=== PATIENT | female | born 1935 | race Hispanic/Latino ===

== ENCOUNTER 2018-04-16 02:30 | Emergency (ER) | payer MEDICARE ==
[2018-04-16] MEDS ORDERED: SODIUM CHLORIDE 0.9% 1000ML 1,000 ML IV ONE ×2 (02:55→04:47)
[2018-04-16] MEDS ORDERED: ONDANSETRON HCL 4 MG/2 ML VIAL ONE (02:55)
[2018-04-16 03:08] LABS: BASOPHILS % (AUTO) 0.2 % (0.0-5.0); EOSINOPHILS % (AUTO) 0.1 % (0.0-8.0); HEMATOCRIT 41.9 % (36-48); LYMPHOCYTES % (AUTO) 2.1 % (21.0-51.0); MEAN CORPUSCULAR HEMOGLOBIN 29.8 pg (27.0-33.0); MEAN CORPUSCULAR HGB CONC 33.7 g/dL (32.0-36.0); MEAN CORPUSCULAR VOLUME 88.4 fL (79-99); MONOCYTES % (AUTO) 2.3 % (3.0-13.0); NEUTROPHILS % (AUTO) 95.3 % (40.0-77.0); PLATELET COUNT (AUTO) 217 K/uL (130-400); RED BLOOD CELL COUNT(AUTO) 4.74 MIL/uL (4.00-5.50); RED CELL DISTRIBUTION WIDTH 15.2 % (11.0-15.5); WHITE BLOOD COUNT (AUTO) 15.2 K/uL (4.8-10.8)
[2018-04-16 03:09] LABS: CREATININE 0.9 mg/dL (0.5-1.5); POTASSIUM 4.5 mmol/L (3.5-5.1)
[2018-04-16 03:14] LABS: TOTAL PROTEIN, SERUM 7.7 g/dL (6.0-8.3)
[2018-04-16 03:15] LABS: BILIRUBIN,URINE SMALL (NEGATIVE); COLOR,URINE YELLOW (YELLOW); GLUCOSE, URINE (UA) NEGATIVE (NEGATIVE); KETONES,URINE 40 mg/dL (NEGATIVE); LEUKOCYTE ESTERASE ,URINE NEGATIVE (NEGATIVE); NITRATE,URINE NEGATIVE (NEGATIVE); OCCULT BLOOD,URINE SMALL (NEGATIVE); PH,URINE 5.5 (5.0-8.0); PROTEIN,URINE TRACE (NEGATIVE); UROBILINOGEN,URINE 0.2 mg/dL (0.2-1.0)
[2018-04-16 03:21] LABS: APPEARANCE,URINE SLIGHTLY CLOUDY (CLEAR)
[2018-04-16 03:26] LABS: BACTERIA,URINE None Seen /HPF (None Seen); MUCUS,URINE Moderate LPF (None Seen); RBC,URINE 0-1 /HPF (0-1); SQUAMOUS EPITHELIAL CELL,UR Rare /HPF (0-2); WBC,URINE None Seen /HPF (0-1)
[2018-04-16] MEDS ORDERED: IOHEXOL-350 75 ML VIAL IV ONE (03:32)
[2018-04-16] MEDS ORDERED: LEVOFLOXACIN 750 MG/D5W 150 ML 150 ML ONE (03:34)
== END 2018-04-16 06:18 | disposition home or self-care (01) ==
LOC: EDH 02:30
DX: K52.9 Noninfective gastroenteritis and colitis, unspecified (principal); R10.84 Generalized abdominal pain; Z79.899 Other long term (current) drug therapy; Z88.0 Allergy status to penicillin
CPT/HCPCS: 36415; 74177; 80053; 81001; 83690; 84484; 85025; 93005; 96361; 96365; 96375; 99285; J1956; J2405; J7030 ×2; Q9967

== ENCOUNTER 2019-10-25 11:19 | Emergency (ER) | payer MEDICARE ==
[2019-10-25 12:16] LABS: BASOPHILS % (AUTO) 0.3 % (0.0-5.0); EOSINOPHILS % (AUTO) 2.6 % (0.0-8.0); HEMATOCRIT 40.9 % (36-48); LYMPHOCYTES % (AUTO) 26.1 % (21.0-51.0); MEAN CORPUSCULAR HEMOGLOBIN 28.9 pg (27.0-33.0); MEAN CORPUSCULAR VOLUME 87.6 fL (79-99); MONOCYTES % (AUTO) 7.6 % (3.0-13.0); NEUTROPHILS % (AUTO) 63.1 % (40.0-77.0); PLATELET COUNT (AUTO) 187 K/uL (130-400); RED BLOOD CELL COUNT(AUTO) 4.67 MIL/uL (4.00-5.50); RED CELL DISTRIBUTION WIDTH 14.8 % (11.0-15.5); WHITE BLOOD COUNT (AUTO) 6.2 K/uL (4.8-10.8)
[2019-10-25] MEDS ORDERED: LISINOPRIL 5 MG TABLET ONE (12:16)
[2019-10-25 12:30] LABS: INR 0.95 (0.85-1.15); PARTIAL THROMBOPLASTIN TIME 27.8 SEC (26.3-35.5); PROTHROMBIN TIME 10.3 SEC (9.6-11.6)
[2019-10-25 12:31] LABS: CREATININE 0.6 mg/dL (0.5-1.5); POTASSIUM 3.9 mmol/L (3.5-5.1)
[2019-10-25 12:35] LABS: ALBUMIN 4.3 g/dL (3.5-5.0); BILIRUBIN,TOTAL 0.6 mg/dL (0.2-1.0); TOTAL PROTEIN, SERUM 7.3 g/dL (6.0-8.3)
== END 2019-10-25 13:58 | disposition home or self-care (01) ==
LOC: EDH 11:19
DX: I10 Essential (primary) hypertension (principal); Z00.00 Encounter for general adult medical examination without abnormal findings; Z88.0 Allergy status to penicillin
CPT/HCPCS: 36415; 80053; 82550; 84484; 85025; 85610; 85730; 93005

== ENCOUNTER 2020-03-23 12:55 | Emergency (ER) | payer MEDICARE ==
[2020-03-23 13:32] LABS: BASOPHILS % (AUTO) 0.6 % (0.0-5.0); EOSINOPHILS % (AUTO) 1.6 % (0.0-8.0); HEMATOCRIT 40.8 % (36-48); LYMPHOCYTES % (AUTO) 26.8 % (21.0-51.0); MEAN CORPUSCULAR HEMOGLOBIN 30.2 pg (27.0-33.0); MEAN CORPUSCULAR HGB CONC 33.1 g/dL (32.0-36.0); MEAN CORPUSCULAR VOLUME 91.3 fL (79-99); MONOCYTES % (AUTO) 8.5 % (3.0-13.0); NEUTROPHILS % (AUTO) 62.2 % (40.0-77.0); PLATELET COUNT (AUTO) 224 K/uL (130-400); RED BLOOD CELL COUNT(AUTO) 4.47 MIL/uL (4.00-5.50); RED CELL DISTRIBUTION WIDTH 14.7 % (11.0-15.5); WHITE BLOOD COUNT (AUTO) 8.7 K/uL (4.8-10.8)
[2020-03-23 13:43] LABS: CREATININE 0.7 mg/dL (0.5-1.5); POTASSIUM 3.3 mmol/L (3.5-5.1)
[2020-03-23 13:47] LABS: ALBUMIN 3.7 g/dL (3.5-5.0); BILIRUBIN,DIRECT 0.1 mg/dL (0.0-0.3); BILIRUBIN,TOTAL 0.4 mg/dL (0.2-1.0); TOTAL PROTEIN, SERUM 7.3 g/dL (6.0-8.3)
[2020-03-23 13:57] LABS: INR 0.89 (0.85-1.15); PROTHROMBIN TIME 9.7 SEC (9.6-11.6)
== END 2020-03-23 14:20 | disposition home or self-care (01) ==
LOC: EDH 12:55
DX: Z01.30 Encounter for examination of blood pressure without abnormal findings (principal); Z88.0 Allergy status to penicillin
CPT/HCPCS: 36415; 80048; 80076; 82550; 84484; 85025; 85610; 85730; 93005

== ENCOUNTER → 2020-04-14 | Outpatient (CLI) | payer MEDICARE ==
[~2020-04-14] MED LIST: REGADENOSON 0.4 MG/5 ML PF SYG IVP SCH
== END | disposition home or self-care (01) ==
LOC: SHCH 08:06
PROVIDERS: ATTEND Internal Medicine
DX: R07.9 Chest pain, unspecified (principal)
CPT/HCPCS: 78452; 93017; 96374; A9500 ×2; J2785

== ENCOUNTER 2021-09-07 01:13 | Emergency (ER) | payer MEDICARE, OTHER ==
[~2021-09-07] VITALS: Ht 165.1 cm; Wt 83.5 kg
[2021-09-07 02:00] LABS: BASOPHILS % (AUTO) 0.4 % (0.0-5.0); EOSINOPHILS % (AUTO) 1.8 % (0.0-8.0); HEMATOCRIT 35.4 % (36-48); LYMPHOCYTES % (AUTO) 15.7 % (21.0-51.0); MEAN CORPUSCULAR HGB CONC 32.5 g/dL (32.0-36.0); MEAN CORPUSCULAR VOLUME 89.4 fL (79-99); MONOCYTES % (AUTO) 10.3 % (3.0-13.0); NEUTROPHILS % (AUTO) 71.2 % (40.0-77.0); PLATELET COUNT (AUTO) 171 K/uL (130-400); RED BLOOD CELL COUNT(AUTO) 3.96 MIL/uL (4.00-5.50); RED CELL DISTRIBUTION WIDTH 16.2 % (11.0-15.5); WHITE BLOOD COUNT (AUTO) 9.2 K/uL (4.8-10.8)
[2021-09-07] MEDS ORDERED: KETOROLAC 15MG/ML VIAL (15MG/ML) IV ONE (02:00)
[2021-09-07] MEDS ORDERED: ORPHENADRINE CITRATE 30 MG/ML ML IV ONE (02:00)
[2021-09-07 02:14] LABS: CREATININE 0.8 mg/dL (0.5-1.5); POTASSIUM 4.6 mmol/L (3.5-5.1)
[2021-09-07 02:14] LABS: APPEARANCE,URINE Clear (CLEAR); BILIRUBIN,URINE Negative (NEGATIVE); COLOR,URINE Yellow (YELLOW); GLUCOSE, URINE (UA) Negative (NEGATIVE); KETONES,URINE Negative (NEGATIVE); LEUKOCYTE ESTERASE ,URINE Small (NEGATIVE); NITRATE,URINE Negative (NEGATIVE); OCCULT BLOOD,URINE Negative (NEGATIVE); PROTEIN,URINE Negative (NEGATIVE)
[2021-09-07 02:21] LABS: ALBUMIN 3.4 g/dL (3.5-5.0); BILIRUBIN,TOTAL 1.1 mg/dL (0.2-1.0)
[2021-09-07 02:24] LABS: BACTERIA,URINE None Seen /HPF (None Seen); RBC,URINE None Seen /HPF (0-1); SQUAMOUS EPITHELIAL CELL,UR Few /HPF (0-2)
[2021-09-07] MEDS ORDERED: MORPHINE 4 MG SYG IV ONE (03:30)
[2021-09-07] MEDS ORDERED: MORPHINE 2 MG SYG ONE (03:43)
[2021-09-07 04:12] VITALS: BP 135/60
[2021-09-07] MEDS ORDERED: ACET1TAB25 PO (04:16)
== END 2021-09-07 04:40 | disposition home or self-care (01) ==
LOC: EDH 01:13
DX: N28.1 Cyst of kidney, acquired (principal); I10 Essential (primary) hypertension; M19.90 Unspecified osteoarthritis, unspecified site; Z79.1 Long term (current) use of non-steroidal anti-inflammatories (NSAID); Z88.0 Allergy status to penicillin
CPT/HCPCS: 36415; 74176; 80053; 81001; 85025; 96374; 96375; 99284; J1885; J2360

== ENCOUNTER 2021-09-14 11:55 | Inpatient (IN) | payer OTHER ==
[~2021-09-14] VITALS: Ht 165.1 cm; Wt 83.7 kg
[~2021-09-14 11:55] MED LIST changes: +ACET1TAB25 PO; -REGADENOSON 0.4 MG/5 ML PF SYG IVP SCH
[2021-09-14] MEDS ORDERED: 0.9%NACL 1000ML 1,000 ML IV SCH (12:30)
[2021-09-14] MEDS ORDERED: FAMOTIDINE 20MG VIAL IV SCH (12:30)
[2021-09-14] MEDS ORDERED: MORPHINE 2 MG SYG IVP SCH (12:30)
[2021-09-14] MEDS ORDERED: ONDANSETRON 4MG INJ IVP SCH (12:30)
[2021-09-14 12:48] LABS: BASOPHILS % (AUTO) 0.2 % (0.0-5.0); EOSINOPHILS % (AUTO) 0.4 % (0.0-8.0); HEMATOCRIT 39.9 % (36-48); LYMPHOCYTES % (AUTO) 3.8 % (21.0-51.0); MEAN CORPUSCULAR HEMOGLOBIN 29.4 pg (27.0-33.0); MEAN CORPUSCULAR HGB CONC 33.3 g/dL (32.0-36.0); MEAN CORPUSCULAR VOLUME 88.3 fL (79-99); MONOCYTES % (AUTO) 3.8 % (3.0-13.0); NEUTROPHILS % (AUTO) 90.8 % (40.0-77.0); PLATELET COUNT (AUTO) 205 K/uL (130-400); RED BLOOD CELL COUNT(AUTO) 4.52 MIL/uL (4.00-5.50); RED CELL DISTRIBUTION WIDTH 16.4 % (11.0-15.5); WHITE BLOOD COUNT (AUTO) 11.3 K/uL (4.8-10.8)
[2021-09-14 13:00] LABS: INR 0.96 (0.85-1.15); PROTHROMBIN TIME 10.5 SEC (9.6-11.6)
[2021-09-14 13:01] LABS: PARTIAL THROMBOPLASTIN TIME 23.9 SEC (26.3-35.5)
[2021-09-14 13:02] LABS: APPEARANCE,URINE Clear (CLEAR); BILIRUBIN,URINE Negative (NEGATIVE); COLOR,URINE Yellow (YELLOW); GLUCOSE, URINE (UA) Negative (NEGATIVE); KETONES,URINE Trace mg/dL (NEGATIVE); LEUKOCYTE ESTERASE ,URINE Small (NEGATIVE); NITRATE,URINE Negative (NEGATIVE); OCCULT BLOOD,URINE Negative (NEGATIVE); PH,URINE 6.5 (5.0-8.0); PROTEIN,URINE Negative (NEGATIVE)
[2021-09-14 13:06] LABS: ALBUMIN 3.1 g/dL (3.5-5.0); BILIRUBIN,TOTAL 0.9 mg/dL (0.2-1.0); CREATININE 0.7 mg/dL (0.5-1.5); POTASSIUM 3.6 mmol/L (3.5-5.1)
[2021-09-14] MEDS ORDERED: IOHEXOL 350 MG/ML 100ML INFUS..BTL IV ONE (13:24)
[2021-09-14 13:40] LABS: BACTERIA,URINE Rare /HPF (None Seen); RBC,URINE 0-1 /HPF (0-1)
[2021-09-14] MEDS ORDERED: 0.9%NACL 1000ML 1,000 ML IV ONE (14:00)
[2021-09-14] MEDS ORDERED: CEFTRIAXONE 1G VIAL IV ONE (14:00)
[2021-09-14] MEDS ORDERED: PHARMACY COMMUNICATION MISC SCH (14:30)
[2021-09-14] MEDS ORDERED: 0.9% NACL 500ML IV.SOLN 500 ML IV ONE (16:00)
[2021-09-14] MEDS ORDERED: ACETAMINOPHEN 325 MG TAB PO PRN (16:30)
[2021-09-14] MEDS ORDERED: ONDANSETRON 4MG INJ IVP PRN (16:30)
[2021-09-14] MEDS: DEXTROSE 5 % AND 0.9 % NACL 1,000 ML IV SCH (17:30)
[2021-09-14 18:04] VITALS: BP 146/84
[2021-09-14 20:06] VITALS: BP 128/71
[2021-09-14 23:35] VITALS: BP 126/82
[2021-09-15] VITALS (7 sets, daily range): BP systolic 119–152; BP diastolic 69–99
[2021-09-15 06:43] LABS: BASOPHILS % (AUTO) 0.3 % (0.0-5.0); EOSINOPHILS % (AUTO) 2.3 % (0.0-8.0); HEMATOCRIT 36.9 % (36-48); LYMPHOCYTES % (AUTO) 12.3 % (21.0-51.0); MEAN CORPUSCULAR HEMOGLOBIN 29.3 pg (27.0-33.0); MEAN CORPUSCULAR HGB CONC 32.2 g/dL (32.0-36.0); MEAN CORPUSCULAR VOLUME 90.9 fL (79-99); MONOCYTES % (AUTO) 4.9 % (3.0-13.0); NEUTROPHILS % (AUTO) 78.9 % (40.0-77.0); PLATELET COUNT (AUTO) 186 K/uL (130-400); RED BLOOD CELL COUNT(AUTO) 4.06 MIL/uL (4.00-5.50); RED CELL DISTRIBUTION WIDTH 16.7 % (11.0-15.5); WHITE BLOOD COUNT (AUTO) 6.2 K/uL (4.8-10.8)
[2021-09-15 06:46] LABS: ALBUMIN 2.7 g/dL (3.5-5.0); BILIRUBIN,TOTAL 0.6 mg/dL (0.2-1.0); CREATININE 0.6 mg/dL (0.5-1.5); MAGNESIUM 2.1 mg/dL (1.80-2.40); POTASSIUM 3.9 mmol/L (3.5-5.1); TOTAL PROTEIN, SERUM 5.6 g/dL (6.0-8.3)
[2021-09-15 07:41] LABS: HEMOGLOBIN A1C 6.6 % (4.0-6.0)
[2021-09-15] MEDS: ENOXAPARIN SODIUM 30 MG/0.3 ML SQ SCH (08:48)
[2021-09-15] MEDS: CEFTRIAXONE 1G VIAL IVP SCH ×2 (14:00→16:34)
[2021-09-15] MEDS ORDERED: GADOTERATE MEGLUMINE 10 MMOL/20 ML VIAL IV ONE (14:21)
[2021-09-15] MEDS ORDERED: ATOR40TA71 PO (15:39)
[2021-09-15] MEDS ORDERED: LISI1TAB51 PO (20:56)
[2021-09-15] MEDS ORDERED: DULO30CA52 PO (20:56)
[2021-09-15] MEDS ORDERED: AMLO-258 PO (20:57)
[2021-09-15] MEDS: DEXTROSE 5 % AND 0.9 % NACL 1,000 ML IV SCH (22:30)
[2021-09-15] MEDS ORDERED: METOPROLOL TARTRATE 50 MG TAB ONE (23:45)
[2021-09-16 03:41] VITALS: BP 127/62
[2021-09-16] MEDS ORDERED: [UNRECOGNIZED DRUG - REMARK] MISC SCH (06:00)
[2021-09-16 08:00] VITALS: BP 143/65
[2021-09-16] MEDS: LISINOPRIL 20 MG TABLET PO SCH (09:11)
[2021-09-16] MEDS: ATORVASTATIN 40 MG TABLET PO SCH (09:11)
[2021-09-16] MEDS: DULOXETINE HCL 30 MG CAP PO SCH (09:11)
[2021-09-16] MEDS: AMLODIPINE 5 MG TAB PO SCH (09:11)
[2021-09-16] MEDS: HYDROCHLOROTHIAZIDE 25 MG TABLET PO SCH (09:12)
[2021-09-16] MEDS: ENOXAPARIN SODIUM 30 MG/0.3 ML SQ SCH (09:13)
[2021-09-16] MEDS: METOPROLOL TARTRATE 50 MG TAB PO SCH ×2 (09:21→21:13)
[2021-09-16 12:00] VITALS: BP 143/60
[2021-09-16] MEDS: CEFTRIAXONE 1G VIAL IVP SCH (14:52)
[2021-09-16 16:00] VITALS: BP 135/72
[2021-09-16 20:11] VITALS: BP 155/65
[2021-09-16] MEDS: DEXTROSE 5 % AND 0.9 % NACL 1,000 ML IV SCH (21:17)
[2021-09-16 23:46] VITALS: BP 144/57
[2021-09-17] VITALS (16 sets, daily range): BP systolic 103–152; BP diastolic 60–92
[2021-09-17] MEDS: DULOXETINE HCL 30 MG CAP PO SCH (08:21)
[2021-09-17] MEDS: HYDROCHLOROTHIAZIDE 25 MG TABLET PO SCH (08:22)
[2021-09-17] MEDS: LISINOPRIL 20 MG TABLET PO SCH (08:22)
[2021-09-17] MEDS: AMLODIPINE 5 MG TAB PO SCH (08:22)
[2021-09-17] MEDS: METOPROLOL TARTRATE 50 MG TAB PO SCH (08:22)
[2021-09-17] MEDS: ATORVASTATIN 40 MG TABLET PO SCH (08:25)
[2021-09-17] MEDS ORDERED: PROPOFOL 10 MG/ML 20ML VIAL IV ONE (10:25)
[2021-09-17] MEDS: CEFTRIAXONE 1G VIAL IVP SCH (14:54)
== END 2021-09-17 16:30 | disposition home or self-care (01) | DRG 690 ==
LOC: EDH 11:55 → EDHIP 16:14 → 3AH 17:48
PROVIDERS: ADMIT Internal Medicine Infectious Disease; ATTEND Internal Medicine Infectious Disease
PROC: 0DJ08ZZ Inspection of Upper Intestinal Tract, Via Natural or Artificial Opening Endoscopic (ICD-10-PCS; principal; 2021-09-17)
DX: N39.0 Urinary tract infection, site not specified (principal); I10 Essential (primary) hypertension; G89.29 Other chronic pain; E78.5 Hyperlipidemia, unspecified; M79.7 Fibromyalgia; E66.9 Obesity, unspecified; K83.8 Other specified diseases of biliary tract; Z68.30 Body mass index [BMI] 30.0-30.9, adult; Z88.0 Allergy status to penicillin; Z90.49 Acquired absence of other specified parts of digestive tract
CPT/HCPCS: 36415; 43259; 74177; 74183; 80053; 81001; 83036; 83605; 83690; 83735; 84484; 85025; 85610; 85730; 87040; 93005; A4606; G0378; J0696; J1650; J2405; J2704; J3490; J7030; J7042; Q9967

== ENCOUNTER → 2022-11-04 | Outpatient (CLI) | payer OTHER ==
[~2022-11-04] MED LIST changes: +ACET-2079 PO; -ACET1TAB25 PO; +AMLO-258 PO; +ATOR40TA71 PO; +DULO30CA52 PO; +LISI1TAB51 PO
== END | disposition home or self-care (01) ==
LOC: SHCH 10:22
PROVIDERS: ATTEND Internal Medicine
DX: I08.0 Rheumatic disorders of both mitral and aortic valves (principal); I11.9 Hypertensive heart disease without heart failure
CPT/HCPCS: 93306

== ENCOUNTER → 2022-11-15 | Outpatient (CLI) | payer OTHER | END | disposition home or self-care (01) | LOC: SHCH 11:35 | PROVIDERS: ATTEND Internal Medicine | DX: I73.9 Peripheral vascular disease, unspecified (principal) | CPT/HCPCS: 93925 ==

== ENCOUNTER 2023-03-13 03:41 | Inpatient (IN) | payer OTHER ==
[~2023-03-13] VITALS: Ht 165.1 cm; Wt 84.4 kg
[2023-03-13] VITALS (7 sets, daily range): BP systolic 114–140; BP diastolic 53–69; PULSE 75–89; RESP 18; O2SAT 93
[2023-03-13 04:17] LABS: BASOPHILS # (AUTO) 0.04 K/uL (0.00-0.20); BASOPHILS % (AUTO) 0.2 % (0.0-5.0); EOSINOPHILS # (AUTO) 0.08 K/uL (0.00-0.70); EOSINOPHILS % (AUTO) 0.5 % (0.0-8.0); HEMATOCRIT 33.3 % (36-48); IMMATURE GRANULOCYTE ABSOLUTE 0.09 K/uL (0-1); LYMPHOCYTES # (AUTO) 1.1 K/uL (1.0-4.8); LYMPHOCYTES % (AUTO) 6.7 % (21.0-51.0); MEAN CORPUSCULAR HEMOGLOBIN 29.3 pg (27.0-33.0); MEAN CORPUSCULAR HGB CONC 33.6 g/dL (32.0-36.0); MEAN CORPUSCULAR VOLUME 87.2 fL (79-99); MONOCYTES # (AUTO) 1.2 K/uL (0.1-1.0); MONOCYTES % (AUTO) 7.1 % (3.0-13.0); NEUTROPHILS # (AUTO) 13.7 K/uL (1.8-7.7); NEUTROPHILS % (AUTO) 84.9 % (40.0-77.0); PLATELET COUNT (AUTO) 132 K/uL (130-400); RED BLOOD CELL COUNT(AUTO) 3.82 MIL/uL (4.00-5.50); RED CELL DISTRIBUTION WIDTH 15.6 % (11.0-15.5); WHITE BLOOD COUNT (AUTO) 16.1 K/uL (4.8-10.8)
[2023-03-13 04:18] LABS: APPEARANCE,URINE CLOUDY (CLEAR); BILIRUBIN,URINE NEGATIVE (NEGATIVE); COLOR,URINE YELLOW (YELLOW); GLUCOSE, URINE (UA) NEGATIVE (NEGATIVE); KETONES,URINE NEGATIVE (NEGATIVE); LEUKOCYTE ESTERASE ,URINE 500 Leu/uL (NEGATIVE); NITRATE,URINE NEGATIVE (NEGATIVE); OCCULT BLOOD,URINE MODERATE (NEGATIVE); PROTEIN,URINE 50 mg/dL (NEGATIVE); UROBILINOGEN,URINE 3 mg/dL (0.2-1.0)
[2023-03-13 04:23] LABS: CREATININE 0.9 mg/dL (0.5-1.5); POTASSIUM 3.9 mmol/L (3.5-5.1)
[2023-03-13 04:31] LABS: INFLUENZA TYPE A Negative For Type A (NEGATIVE); INFLUENZA TYPE B Negative For Type B (NEGATIVE); SARS-CoV-2, RNA, NAAT POSITIVE SARS CoV-2 (NEGATIVE)
[2023-03-13 04:32] LABS: ADD UA MICROSCOPIC YES
[2023-03-13 04:34] LABS: ALBUMIN 3.2 g/dL (3.5-5.0); BILIRUBIN,TOTAL 0.8 mg/dL (0.2-1.0); MAGNESIUM 1.8 mg/dL (1.80-2.40); TOTAL PROTEIN, SERUM 6.8 g/dL (6.0-8.3)
[2023-03-13 04:35] LABS: MUCUS,URINE FEW LPF (None Seen); SQUAMOUS EPITHELIAL CELL,UR MOD /HPF (0-2); WBC,URINE 26-50 /HPF (0-1)
[2023-03-13] MEDS ORDERED: ACETAMINOPHEN 325 MG TAB PO PRN (06:00)
[2023-03-13] MEDS ORDERED: IPRATROPIUM/ALBUTEROL SULFATE 3 ML SOLUTION IH ONE (06:00)
[2023-03-13] MEDS ORDERED: LEVOFLOXACIN 500 MG/D5W 100 ML 100 ML IV SCH (06:00)
[2023-03-13] MEDS ORDERED: ONDANSETRON 4MG INJ IVP PRN (06:00)
[2023-03-13] MEDS: CEFTRIAXONE 1G VIAL IVPB SCH (06:18)
[2023-03-13 06:41] LABS: HEMOGLOBIN A1C 5.7 % (4.0-6.0)
[2023-03-13] MEDS: SOLU-MEDROL 40MG VIAL IVP SCH (12:06)
[2023-03-13] MEDS: DOXYCYCLINE HYCLATE 100 MG TABLET PO SCH ×2 (12:06→21:45)
[2023-03-13] MEDS: ENOXAPARIN SODIUM 30 MG/0.3 ML SQ SCH (12:06)
[2023-03-14] VITALS (7 sets, daily range): BP systolic 104–145; BP diastolic 56–66; PULSE 77–103; RESP 16–19; O2SAT 92–93
[2023-03-14] MEDS: CEFTRIAXONE 1G VIAL IVPB SCH (04:59)
[2023-03-14] MEDS: SOLU-MEDROL 40MG VIAL IVP SCH (09:07)
[2023-03-14] MEDS: DOXYCYCLINE HYCLATE 100 MG TABLET PO SCH ×2 (09:07→19:43)
[2023-03-14] MEDS: ENOXAPARIN SODIUM 30 MG/0.3 ML SQ SCH (09:08)
[2023-03-14 11:46] LABS: HEMATOCRIT 32.3 % (36-48); MEAN CORPUSCULAR HEMOGLOBIN 29.1 pg (27.0-33.0); MEAN CORPUSCULAR HGB CONC 33.7 g/dL (32.0-36.0); MEAN CORPUSCULAR VOLUME 86.1 fL (79-99); RED BLOOD CELL COUNT(AUTO) 3.75 MIL/uL (4.00-5.50); RED CELL DISTRIBUTION WIDTH 15.3 % (11.0-15.5); WHITE BLOOD COUNT (AUTO) 16.6 K/uL (4.8-10.8)
[2023-03-14 11:57] LABS: CREATININE 0.7 mg/dL (0.5-1.5); POTASSIUM 3.5 mmol/L (3.5-5.1)
[2023-03-14] MEDS ORDERED: GUAIFENESIN-DM 200/20 MG 10 ML PO PRN (15:30)
[2023-03-14] MEDS ORDERED: LOSA50TA64 PO (23:27)
[2023-03-15] VITALS: BP 125/78; PULSE 84; RESP 14
[2023-03-15 04:00] VITALS: BP 124/61; PULSE 75; RESP 15
[2023-03-15] MEDS: CEFTRIAXONE 1G VIAL IVPB SCH (05:18)
[2023-03-15 06:17] LABS: HEMATOCRIT 30.9 % (36-48); MEAN CORPUSCULAR HEMOGLOBIN 28.6 pg (27.0-33.0); MEAN CORPUSCULAR HGB CONC 32.7 g/dL (32.0-36.0); MEAN CORPUSCULAR VOLUME 87.5 fL (79-99); RED BLOOD CELL COUNT(AUTO) 3.53 MIL/uL (4.00-5.50); RED CELL DISTRIBUTION WIDTH 15.5 % (11.0-15.5)
[2023-03-15 06:36] LABS: CREATININE 0.7 mg/dL (0.5-1.5); MAGNESIUM 2.1 mg/dL (1.80-2.40); POTASSIUM 4.1 mmol/L (3.5-5.1)
[2023-03-15 08:00] VITALS: BP 152/72; PULSE 74; RESP 18; O2SAT 92
[2023-03-15] MEDS: DOXYCYCLINE HYCLATE 100 MG TABLET PO SCH (08:52)
[2023-03-15] MEDS: ENOXAPARIN SODIUM 30 MG/0.3 ML SQ SCH (08:53)
[2023-03-15] MEDS: SOLU-MEDROL 40MG VIAL IVP SCH (08:53)
[2023-03-15 10:56] VITALS: PULSE 72; RESP 18; O2SAT 92
[2023-03-15 12:00] VITALS: BP 142/66; PULSE 80; RESP 20
== END 2023-03-15 17:45 | disposition home or self-care (01) | DRG 871 ==
LOC: EDH 03:41 → EDHIP 06:00 → 3CH 09:07
PROVIDERS: ADMIT Internal Medicine Infectious Disease; ATTEND Internal Medicine Infectious Disease
DX: A41.50 Gram-negative sepsis, unspecified (principal); U07.1 COVID-19; N39.0 Urinary tract infection, site not specified; E66.9 Obesity, unspecified; Z68.31 Body mass index [BMI] 31.0-31.9, adult; B96.20 Unspecified Escherichia coli [E. coli] as the cause of diseases classified elsewhere; E78.5 Hyperlipidemia, unspecified; I10 Essential (primary) hypertension; Z78.9 Other specified health status; Z88.0 Allergy status to penicillin
CPT/HCPCS: 36415; 71045; 80048; 80053; 81001; 82550; 83036; 83605; 83735; 83874; 83880; 84484; 85025; 85027; 87040; 87077; 87088; 87186; 87635; 87804; 93005; 94640; C9803; G0378; J0696; J1650; J1956; J2920

== ENCOUNTER 2024-06-21 19:29 | Emergency (ER) | payer OTHER ==
[~2024-06-21] VITALS: Ht 165.1 cm; Wt 78.9 kg
[~2024-06-21 19:29] MED LIST changes: -ACET-2079 PO; -AMLO-258 PO; -ATOR40TA71 PO; -DULO30CA52 PO; -LISI1TAB51 PO; +LOSA50TA64 PO
[2024-06-21 20:10] LABS: BASOPHILS # (AUTO) 0.01 K/uL (0.00-0.20); BASOPHILS % (AUTO) 0.1 % (0.0-5.0); HEMATOCRIT 33.9 % (36-48); IMMATURE GRANULOCYTE ABSOLUTE 0.02 K/uL (0-1); LYMPHOCYTES # (AUTO) 0.6 K/uL (1.0-4.8); LYMPHOCYTES % (AUTO) 7.3 % (21.0-51.0); MEAN CORPUSCULAR HEMOGLOBIN 29.5 pg (27.0-33.0); MEAN CORPUSCULAR HGB CONC 32.7 g/dL (32.0-36.0); MEAN CORPUSCULAR VOLUME 90.2 fL (79-99); MONOCYTES # (AUTO) 0.2 K/uL (0.1-1.0); MONOCYTES % (AUTO) 1.9 % (3.0-13.0); NEUTROPHILS # (AUTO) 7.1 K/uL (1.8-7.7); NEUTROPHILS % (AUTO) 90.4 % (40.0-77.0); PLATELET COUNT (AUTO) 146 K/uL (130-400); RED BLOOD CELL COUNT(AUTO) 3.76 MIL/uL (4.00-5.50); WHITE BLOOD COUNT (AUTO) 7.8 K/uL (4.8-10.8)
[2024-06-21 20:22] LABS: CREATININE 0.8 mg/dL (0.5-1.0); POTASSIUM 4.1 mmol/L (3.5-5.1)
--- NOTE | 2024-06-21 20:30 | HMCIMG ---
Exam Type: CHEST 1VW Clinical Information: cp Comparison: None Findings: The lungs are clear of infiltrates. The heart is enlarged. Bony and soft tissue structures of the chest wall are unremarkable. IMPRESSION: Cardiomegaly. Clear lungs.
[2024-06-21 20:32] LABS: MAGNESIUM 2.1 mg/dL (1.80-2.40)
--- NOTE | 2024-06-21 20:49 | ERN ---
General Chief Complaint: Chest Pain Stated Complaint: CHEST PRESSURE X 1 HOUR Time Seen by MD: 19:43 Time Seen by Midlevel: 19:43 Source: patient History of Present Illness Initial Comments Patient is an 88-year-old female with a past medical history of hypertension being brought in by EMS for evaluation of chest pressure that started1 hour prior to arrival. According to EMS patient was administered four baby aspirins along with one sublingual nitroglycerin. Patient states her symptoms resolved after the nitro. She does report similar episodes in the past that usually resolve on their own. On arrival she was chest pain-free and specifically denies any other symptoms. Allergies: Coded Allergies: Penicillins (Verified Allergy, Unknown, 06/06/19) Home Meds Reported Medications Losartan Potassium (Losartan Potassium) 50 Mg Tablet, 50 MG PO DAILY, TAB 03/14/23 Past Medical History Past Medical History: Arthritis, High Cholesterol, Hypertension Past Surgical History: Other Surgical History Other: BLOOD CLOT REMOVAL Social History Social History: Other ROS Dictation CONSTITUTIONAL: Negative except for HPI HEAD/FACE: Negative except for HPI EENT: Negative except for HPI RESPIRATORY: Negative except for HPI GASTROINTESTINAL/ABDOMINAL: Negative except for HPI GENITOURINARY: Negative except for HPI MUSCULOSKELETAL: Negative except for HPI INTEGUMENTARY: Negative except for HPI NEUROLOGICAL/PSYCH: Negative except for HPI HEMATOLOGIC/LYMPHATIC: Negative except for HPI All Systems Negative, Except as noted above. 13 point review of systems assessed and all negative except for above. Physical Exam Physical Exam Dictation Vital Signs reviewed General Appearance: Alert, oriented x 3, no acute distress, well developed, nourished. Head and Face: non-traumatic. Eyes: PERRL, pink conjunctivas, eyelid no trauma, anterior chamber with arcus senilis. Ears: Pinnas intact and no signs of trauma or erythema ear canals clear and no discharge TM no erythema Nose: No discharge, no bleeding. Oropharynx: Mouth normal, tongue pink, pharynx clear,no erythema, tonsils no exudates, no abscesses noted, mucous membrane moist Neck: Supple, non-tender, no thyromegaly, no masses, no JVD, no bruits Breast:Deferred Chest:No tenderness, no crepitus, no paradoxical movement, no retractions Lungs:Clear, well-ventilated, symmetric, no rales, no wheezing, no rhonchi, no stridor, good breath sounds bilaterally Heart: Regular rate, regular rhythm, no murmur, no gallops Vascular: no peripheral edema, Abdomen: Soft, positive bowel sounds, nondistended, no guarding, nontender, no rebound, no masses no hepatomegaly, no splenomegaly, no Patel's sign, no hernias. Rectal: Deferred Genital: Deferred Neurological: Normal speech, motor function intact, sensory function intact Musculoskeletal: Neck nontender, full range of motion, back nontender, full range of motion, Extremities: nontender, full range of motion Skin: Color pink, dry, no turgor, no rash, no lacerations, no abrasions, no contusions. Lymphatic: Deferred Results Laboratory and Microbiology Lab and Micro Result Laboratory Tests Test 06/21/24 19:45 White Blood Count 7.8 K/uL (4.8-10.8) Red Blood Count 3.76 MIL/uL (4.00-5.50) L Hemoglobin 11.1 g/dL (12.0-16.0) L Hematocrit 33.9 % (36-48) L Mean Corpuscular Volume 90.2 fL (79-99) Mean Corpuscular Hemoglobin 29.5 pg (27.0-33.0) Mean Corpuscular Hemoglobin Concent 32.7 g/dL (32.0-36.0) Red Cell Distribution Width 15.0 % (11.0-15.5) Platelet Count 146 K/uL (130-400) Mean Platelet Volume 9.8 fL (7.5-10.5) Immature Granulocyte % (Auto) 0.3 % (0-1) Neutrophils (%) (Auto) 90.4 % (40.0-77.0) H Lymphocytes (%) (Auto) 7.3 % (21.0-51.0) L Monocytes (%) (Auto) 1.9 % (3.0-13.0) L Eosinophils (%) (Auto) 0.0 % (0.0-8.0) Basophils (%) (Auto) 0.1 % (0.0-5.0) Neutrophils # (Auto) 7.1 K/uL (1.8-7.7) Lymphocytes # (Auto) 0.6 K/uL (1.0-4.8) L Monocytes # (Auto) 0.2 K/uL (0.1-1.0) Eosinophils # (Auto) 0.00 K/uL (0.00-0.70) Basophils # (Auto) 0.01 K/uL (0.00-0.20) Absolute Immature Granulocyte (auto 0.02 K/uL (0-1) Nucleated Red Blood Cells 0.0 % (0.0-0.19) White Cell Morphology Comment See comments Sodium Level 137 mmol/L (136-145) Potassium Level 4.1 mmol/L (3.5-5.1) Chloride Level 104 mmol/L (101-111) Carbon Dioxide Level 26 mmol/L (21-32) Blood Urea Nitrogen 19 mg/dL (7-18) H Creatinine 0.8 mg/dL (0.5-1.0) Glomerular Filtration Rate Calc 72 mL/min (>90) Random Glucose 146 mg/dL (70-105) H Total Calcium 8.7 mg/dL (8.5-10.1) Magnesium Level 2.10 mg/dL (1.80-2.40) Total Creatine Kinase 104 U/L (21-232) Troponin I High Sensitivity 29 ng/L (4-50) B-Type Natriuretic Peptide 98 pg/mL (0-100) Labs Reviewed?: Yes MDM MDM: Patient is an 88-year-old female with a past medical history of hypertension being brought in by EMS for evaluation of chest pressure that started1 hour prior to arrival. According to EMS patient was administered four baby aspirins along with one sublingual nitroglycerin. Patient states her symptoms resolved after the nitro. She does report similar episodes in the past that usually resolve on their own. On arrival she was chest pain-free and specifically denies any other symptoms. On physical examination patient is in no acute distress. Vital signs are stable. Patient is afebrile and nontoxic appearing. Cardiac workup was initiated. Her CBC does not show any leukocytosis. Her chemistries are stable. Her cardiac enzymes are negative. Her EKG does not show any evidence of a STEMI or bundle branch blocks. Patient was re-evaluated and reports feeling back to her baseline. I offered admission for further observation and management given her past medical history and eight however she was refusing to be admitted. Risks were discussed with the patient. Patient will be discharged home with close return precautions. Differential diagnosis: ACS, angina, dehydration, electrolyte abnormality Rationale: Tests considered and ordered secondary to shared decision making include: Previous outside records reviewed: Old ER visits. Risk of complication and/or morbidity or mortality of patient management: None Medications-Per medication reconciliation Need for hospitalization: Patient does meet criteria for hospitalization. Need for emergency major/minor surgery: No There are no social concerns with this patient. Prescription drug management Prescriptions will include symptomatic care Patient's prior external medical records from other ER visits were reviewed by me as indicated. Prior testing and results from previous visits were reviewed. Prior tests were taken into account with medical decision making and resource utilization, independent historian/historians were used to obtain complete medical history. I independently interpreted the test that were performed, results were reviewed by me and considered findings on radiology if ordered. Medical management and examination interpretation discussions were had by me with other qualified healthcare professionals as indicated for the patient's care. ED Course Orders Procedure Category Date Status Time Cbc With Differential LAB 06/21/24 Complete 19:33 Basic Metabolic Panel LAB 06/21/24 Complete 19:33 Troponin I High LAB 06/21/24 Complete Sensitivity 19:33 12 Lead Ekg Tracing- EKG 06/21/24 Logged Technical 19:33 Chest 1vw RAD 06/21/24 Resulted 19:33 B-Type Natriuretic LAB 06/21/24 Complete Peptide 19:44 Creatine Kinase, Total LAB 06/21/24 Complete 19:45 Magnesium LAB 06/21/24 Complete 19:45 Vital Signs Date Time Temp Pulse Resp B/P (MAP) Pulse Ox O2 Delivery O2 Flow Rate FiO2 06/21/24 21:08 98.2 80 16 132/85 99 Room Air* 0 21 06/21/24 19:31 98.2 82 16 148/85 99 Room Air 0 06/21/24 19:30 98.2 82 16 148/85 99 Room Air* 0 21 [place] [address] [address] IMAGING REPORT Signed PATIENT: LAINA KIM MR#: [id number] : 1935 SEX: F AGE: 88 LOCATION: [facility] ORDER 33 STATUS: REG ER REPORT#: [id number] SERVICE 32 REASON: cp ORDERING PHYSICIAN: KIARRA ABDUL NP PROCEDURE: CXR1VW - CHEST 1VW Exam Type: CHEST 1VW Clinical Information: cp Comparison: None Findings: The lungs are clear of infiltrates. The heart is enlarged. Bony and soft tissue structures of the chest wall are unremarkable. IMPRESSION: Cardiomegaly. Clear lungs. DICTATED BY: TRISTON PEARSON MD DATE: 06/21/242027 ELECTRONICALLY SIGNED BY: TRISTON PEARSON MD DATE: 06/21/242029 HEART Score Response (Comments) Value History: Moderate suspicion (+1) 1 EKG: Normal 0 Age: > 65yrs (+2) 2 Risk Factors: 1-2 risk factors (+1) 1 Initial Troponin: Normal limit (0) 0 HEART Score Risk: Mod Risk for MACE (4-6) Total 4 DX & DISP Disposition: Discharge Departure Impression: Primary Impression: Chest pain Condition: Stable Referrals: LIVIA COFFMAN DO (PCP) Time of Disposition: 20:48 I have reviewed the case, and I agree with, Diagnosis and Plan I performed the substantive portion of the visit. I have reviewed and personally made and approve the management plan that is documented in the note by myself or the NINOSKA. I acknowledge for responsibility for the patient's management plan. AYLA AVALOS Jun 21, 2024 20:49
[2024-06-21 21:08] VITALS: BP 132/85; PULSE 80; RESP 16; TEMP 98.2; O2SAT 99
--- NOTE | 2024-06-22 05:09 | EKG ---
[facility] Test Date: 2024-06-21 Test Time: 19:43:49 Pat Name: LAINA KIM Department: ED Room: Gender: F Half Section Ironer: [id number] : 1935 Requested By: KIARRA ABDUL Order Number: [id number] Reading MD: Ryan Douglas Measurements Intervals [place] Rate: 78 P: 17 MO: 197 QRS: 29 QRSD: 93 T: 39 QT: 413 QTc: 470 Interpretive Statements Sinus rhythm Compared to ECG 03/13/2023 04:23:50 Atrial premature complex(es) no longer present Electronically Signed On 06-23-2024 21:30:07 [employer]CH[employer]ICAL [employer] ENGINEER by Ryan Douglas Please click the below link to view image of tracing.
== END 2024-06-21 21:10 | disposition home or self-care (01) ==
LOC: EDH 19:29
DX: R07.89 Other chest pain (principal); E78.00 Pure hypercholesterolemia, unspecified; I10 Essential (primary) hypertension; M19.90 Unspecified osteoarthritis, unspecified site; Z79.899 Other long term (current) drug therapy; Z88.0 Allergy status to penicillin; Z98.890 Other specified postprocedural states
CPT/HCPCS: 36415; 71045; 80048; 82550; 83735; 83880; 84484; 85025; 93005; 99285

== ENCOUNTER → 2024-07-27 | Outpatient (CLI) | payer OTHER ==
--- NOTE | 2024-07-29 16:24 | HMCSR ---
APPROVED REPORT EXAM: Two-dimensional and M-mode echocardiogram with Doppler and color Doppler. INDICATION ICD: Cardiac murmur, unspecified R01.1 2D Dimensions RVDd4.3 cmLVEF(%)82.1 (>50%)LVED Vol(simp.)134.0 mL IVSd1.1 (0.7-1.1cm)FS(%)50 %LVES Vol(simp.)44.0 mL LVDd3.6 (3.8-5.6cm)LA (2D)5.2 (1.6-4.0cm)LVEF(%, simp.)67 % PWd1.0 (0.7-1.1cm)Ao Root(2D)3.2 (2.0-3.7cm)LA ESV INDEX (4CH)47.00 mL/m2 IVSs1.5 cmLVOT diam2.0 (1.8-2.4cm) LVDs1.8 (2.5-4.0cm) PWs1.6 cm M-Mode Dimensions EPSS0.6 cm LA (MM)5.8 (1.6-4.0cm) Ao Root(MM)2.6 (2.0-3.7cm) Aortic Valve AoV VTI0.8 mAo Mean GR21.0 mmHgLVOT VTI0.38 m MARIANN (VMAX)1.5 cm2AVA (VTI) 1.5 cm2 Mitral Valve MV E Mndq549.6 cm/sDECEL Bess416 ms MV A Cqmo114.4 cm/sP 1/2 T129 ms E/A ratio0.9MVA (PHT)1.7 cm2 TDI E/E' Uejntm93.9E/E' Mfmrlpt28.0 Medial E' Peak V3.00 cm/sLateral E' Peak V6.10 cm/s Pulmonary Valve PV VTI0.28 mPV Mean GR3 mmHg Left Ventricle Left ventricular cavity size is normal. There is normal left ventricular wall thickness. LVEF is 65-7 0%. Stage II diastolic dysfunction. Right Ventricle The right ventricle is mildly dilated. The right ventricular systolic function is normal. Atria The left atrium is moderately dilated. The right atrium size is normal. Aortic Valve The aortic valve is trileaflet, calcified and displays decreased opening. No aortic regurgitation is present. There is moderate aortic stenosis. Highest mean aortic valve gradient is 21mmHg. Peak aortic valve gradient is 37mmHg. Peak velocity across the valve is 3.06 m/s. MARIANN by VTI is 1.47 cm2. Mitral Valve Mitral valve leaflets open well. Mild mitral annular calcification present. Mitral regurgitation is m ild. There is no mitral valve stenosis. Tricuspid Valve The tricuspid valve is normal in structure and function. There is mild tricuspid valve regurgitation noted. Pulmonic Valve The pulmonary valve is normal in structure and function. There is trivial pulmonic valvular regurgita tion. Great Vessels The aortic root is normal in size. The IVC is normal in size and collapses >50% with inspiration. Pericardium No pericardial effusion. Other Information Quality : AverageRhythm : NSR Conclusion LVEF is 65-70%. Stage II diastolic dysfunction. The left atrium is moderately dilated. Moderate aortic stenosis. Vpk 3.06 m/s, pk/mn gradients of 37/21 mmHg. Mild mitral annular calcification present. Mitral regurgitation is mild.
== END | disposition home or self-care (01) ==
LOC: SHCH 09:01
PROVIDERS: ATTEND Internal Medicine
DX: I08.8 Other rheumatic multiple valve diseases (principal); R01.1 Cardiac murmur, unspecified
CPT/HCPCS: 93306